=== PATIENT | female | born 1945 | race Caucasian/White ===

== ENCOUNTER 2023-12-06 07:59 | Day surgery (SDC) | payer MEDICARE, SELFPAY ==
--- NOTE | 2023-12-05 12:51 | P.CONAN_ITS ---
Documented by User: Serena Ramirez NP 12/05/23 12:54 HPI - Anesthesia Eval Consult details Narrative: 78yo F for Bilateral Lateral Rectus Eye Muscle Recession,Bilateral Superior Rectus Resection Medically optimized [facility] Past Medical History Medical History (Updated 12/05/23 @ 11:30 by Beti Winston RN) Vertigo Inequality of length of lower extremity Bursitis Unspecified retinal disorder ACL tear Depression Osteoarthritis Murmur History of headache Imbalance of muscle of eye Fecal incontinence GERD (gastroesophageal reflux disease) Dysphagia Conjunctival xerosis of left eye Back pain Arthritis Aortic valve regurgitation Allergic rhinitis Acute hemorrhoid Bruit Sleep apnea HTN (hypertension) Erosive esophagitis Hyperlipidemia Surgical History Surgical History (Updated 12/05/23 @ 11:32 by Beti Winston RN) History of repair of ACL Hx of tubal ligation Hx of lumpectomy Hx of hysterectomy History of hip replacement Hx of appendectomy H/O colonoscopy Social History Social History Patient Tobacco Use Status: Never used Tobacco Use of substances other than those prescribed or required for medical reasons: No Are you DNR?: No Advance Directives: No Advance Directives Information Provided: Yes Meds Allergies Allergy/AdvReac Type Severity Reaction Status Date / Time adhesive tape Allergy Rash Verified 12/06/23 08:56 amoxicillin Allergy Hives Verified 12/06/23 08:56 latex Allergy Rash Verified 12/06/23 08:56 Home Medications ?Medication ?Instructions ?Recorded ?Confirmed ?Last Taken ?Type antiarthritic combination no.2 900 900 mg PO DAILY 12/05/23 12/06/23 Unknown History mg tablet (glucosamine-chondroitin) ascorbic acid (vitamin C) 500 mg 500 mg PO DAILY 12/05/23 12/06/23 Unknown History tablet calcium citrate 12/05/23 12/05/23 Unknown History cholecalciferol (vitamin D3) 10 10 mcg PO DAILY 12/05/23 12/06/23 Unknown History mcg (400 unit) tablet (Vitamin D3) coenzyme Q10 100 mg tablet 100 mg PO DAILY 12/05/23 12/06/23 Unknown History garlic 1,000 mg capsule 1,000 mg PO DAILY 12/05/23 12/06/23 Unknown History ibuprofen 200 mg tablet 200 mg PO Q6H PRN Pain 12/05/23 12/06/23 Unknown History loratadine 10 mg tablet 10 mg PO DAILY 12/05/23 12/06/23 Unknown History multivitamin 1 tab PO DAILY 12/05/23 12/06/23 Unknown History omeprazole 20 mg capsule,delayed 20 mg PO DAILY 12/05/23 12/06/23 12/06/23 History release rosuvastatin 40 mg tablet 40 mg PO DAILY 12/05/23 12/06/23 Unknown History triamcinolone acetonide 0.5 % 1 appl topical BID PRN Dry Skin 12/05/23 12/06/23 Unknown History topical cream vitamin B complex 1 tab PO DAILY 12/05/23 12/06/23 Unknown History vitamin E 268 mg (400 unit) capsule 268 mg PO DAILY 12/05/23 12/06/23 Unknown History SUSTAIN 1 drp INTRAOCUL DAILY dry eye 12/06/23 12/06/23 Unknown History Assessment and Plan Assessment Anesthesia Assessment: Chart Reviewed Documented by User: Huan Gee MD 12/06/23 10:57 PMFSH Past Medical History Medical History (Updated 12/05/23 @ 11:30 by Beti Winston RN) Vertigo Inequality of length of lower extremity Bursitis Unspecified retinal disorder ACL tear Depression Osteoarthritis Murmur History of headache Imbalance of muscle of eye Fecal incontinence GERD (gastroesophageal reflux disease) Dysphagia Conjunctival xerosis of left eye Back pain Arthritis Aortic valve regurgitation Allergic rhinitis Acute hemorrhoid Bruit Sleep apnea HTN (hypertension) Erosive esophagitis Hyperlipidemia Narrative: Very active. Works as a driving school instructor. Works out four times a week, works in her garden. Family History Family history of problems with anesthesia: No Surgical History Surgical History (Updated 12/05/23 @ 11:32 by Beti Winston RN) History of repair of ACL Hx of tubal ligation Hx of lumpectomy Hx of hysterectomy History of hip replacement Hx of appendectomy H/O colonoscopy History of Problems with Anesthesia: No Social History Social History Patient Tobacco Use Status: Never used Tobacco Use of substances other than those prescribed or required for medical reasons: No Are you DNR?: No Advance Directives: No Advance Directives Information Provided: Yes Meds Allergies Allergy/AdvReac Type Severity Reaction Status Date / Time adhesive tape Allergy Rash Verified 12/06/23 08:56 amoxicillin Allergy Hives Verified 12/06/23 08:56 latex Allergy Rash Verified 12/06/23 08:56 Home Medications ?Medication ?Instructions ?Recorded ?Confirmed ?Last Taken ?Type antiarthritic combination no.2 900 900 mg PO DAILY 12/05/23 12/06/23 Unknown History mg tablet (glucosamine-chondroitin) ascorbic acid (vitamin C) 500 mg 500 mg PO DAILY 12/05/23 12/06/23 Unknown History tablet calcium citrate 12/05/23 12/05/23 Unknown History cholecalciferol (vitamin D3) 10 10 mcg PO DAILY 12/05/23 12/06/23 Unknown History mcg (400 unit) tablet (Vitamin D3) coenzyme Q10 100 mg tablet 100 mg PO DAILY 12/05/23 12/06/23 Unknown History garlic 1,000 mg capsule 1,000 mg PO DAILY 12/05/23 12/06/23 Unknown History ibuprofen 200 mg tablet 200 mg PO Q6H PRN Pain 12/05/23 12/06/23 Unknown History loratadine 10 mg tablet 10 mg PO DAILY 12/05/23 12/06/23 Unknown History multivitamin 1 tab PO DAILY 12/05/23 12/06/23 Unknown History omeprazole 20 mg capsule,delayed 20 mg PO DAILY 12/05/23 12/06/23 12/06/23 History release rosuvastatin 40 mg tablet 40 mg PO DAILY 12/05/23 12/06/23 Unknown History triamcinolone acetonide 0.5 % 1 appl topical BID PRN Dry Skin 12/05/23 12/06/23 Unknown History topical cream vitamin B complex 1 tab PO DAILY 12/05/23 12/06/23 Unknown History vitamin E 268 mg (400 unit) capsule 268 mg PO DAILY 12/05/23 12/06/23 Unknown History SUSTAIN 1 drp INTRAOCUL DAILY dry eye 12/06/23 12/06/23 Unknown History Exam Airway Mallampati Class: III TM Dist: <=3cm Neck ROM: Full Loose/Missing/Broken Teeth: No Heart: RRR, 3/6 honking mid-peaking AMY heard best at lower left SB. Echo from [place] shows normal LV, RV, and IVC; mild-mod and mild-mod AI. Lungs: ok Assessment and Plan Assessment Anesthesia Assessment: Anesthesia Plan Discussed Final Anesthetic Review Family History of Problems with Anesthesia: No History of Problems with Anesthesia: No NPO: Yes ASA Class: III Final Preanesthetic Review: No Changes in Pt Med Stat, Meds/Allgs Chart Reviewed, Consent Obtained/Reviewed and Anes Risks/Benef Reviewed Patient Risk: Intermediate Procedure Risk: Intermediate Anesthetic Plan Anesthetic Plan: GA and Agree w/ Assess. and Plan Disposition: Standard PACU
[2023-12-06] VITALS (9 sets, daily range): BP systolic 138–176; BP diastolic 70–85; PULSE 54–70; RESP 16; TEMP 36.4–36.5; O2SAT 93–98; BMI 27.5
[2023-12-06] MEDS: Lactated Ringers 1,000 ML 100 ML IVCONT (09:24)
--- NOTE | 2023-12-06 12:34 | HO.OPHTHAL ---
Ophthalmology Operative Note Date of Service: 12/06/23 Narrative: Diagnosis heavy eye syndrome both eyes. Procedure bilateral transposition of the lateral and superior rectus bellies to each other. Surgeon Dr. Hodges. Anesthesia general. Complications none. The patient was brought to the operative room placed under general anesthesia. A peritomy was created from the 09:00 o'clock to the 1 o'clock position. The lateral rectus muscle was hooked and a 5 0 Mersilene was used to secure the superior 3rd of the muscle belly 14 mm behind the insertion. The superior rectus muscle was then hooked and a 5 0 Mersilene was used to secure the temporal 3rd of the muscle belly 14 mm behind the insertion. The 2 muscle bellies were drawn together with a Mersilene sutures. Conjunctiva was closed with interrupted Vicryl sutures. An identical procedure was then performed on the left eye. The patient was then awoken from general anesthesia and discharged to postoperative recovery in good condition.
[2023-12-06] MEDS: Acetaminophen 325 MG TABLET 650 MG PO (12:45)
[2023-12-06] MEDS: oxyCODONE HCl Immed Release 5 MG TABLET PO (12:45)
== END 2023-12-06 14:21 | disposition home or self-care (01) ==
PROVIDERS: PCP Internal Medicine; Visit Provider Ophthalmology
PROC: (CPT 67320; principal; 2023-12-06 10:20)
DX: H50.05 Alternating esotropia (principal); H50.9 Unspecified strabismus; H52.13 Myopia, bilateral; H51.9 Unspecified disorder of binocular movement; H35.9 Unspecified retinal disorder; E78.5 Hyperlipidemia, unspecified; I10 Essential (primary) hypertension; G47.33 Obstructive sleep apnea (adult) (pediatric); L23.1 Allergic contact dermatitis due to adhesives; Z91.040 Latex allergy status; Z88.1 Allergy status to other antibiotic agents; Z79.899 Other long term (current) drug therapy
CPT/HCPCS: 67320; 67311; 67314; J1100; J1596; J2003; J2371; J2405; J2704; J3010